=== PATIENT | male | born 1950 | race American Indian/Alaskan Native ===

== ENCOUNTER 2018-05-27 09:50 | Emergency (ER) | payer OTHER ==
[2018-05-27 09:54] VITALS: BP 137/60; PULSE 63; TEMP 97.4; BMI 29.7
[2018-05-27] MEDS ORDERED: NAPROXEN 500 MG TABLET (FP) PO ONE (10:39)
--- NOTE | 2018-05-27 10:47 | PDOC ---
History of Present Illness - General Chief Complaint: Pain Stated Complaint: LEG PAIN/SIDE PAIN Time Seen by Provider: 05/27/18 10:14 History Source: Patient Exam Limitations: No Limitations Past History - Past Medical History Allergies/Adverse Reactions: Allergies Allergy/AdvReac Type Severity Reaction Status Date / Time No Known Allergies Allergy Verified 05/27/18 09:54 Home Medications: Ambulatory Orders NK [No Known Home Medication] 05/27/18 COPD: No - Suicide/Smoking/Psychosocial Hx Smoking History: Never smoked *Physical Exam - Vital Signs Last Vital Signs Temp Pulse Resp BP Pulse Ox 97.4 F L 63 18 137/60 99 05/27/18 09:51 05/27/18 09:51 05/27/18 09:51 05/27/18 09:51 05/27/18 09:51 Moderate Sedation - Procedure Monitoring Vital Signs: Procedure Monitoring Vital Signs Temperature 97.4 F L 05/27/18 09:51 Pulse Rate 63 05/27/18 09:51 Respiratory Rate 18 05/27/18 09:51 Blood Pressure 137/60 05/27/18 09:51 O2 Sat by Pulse Oximetry (%) 99 05/27/18 09:51 *DC/Admit/Observation/Transfer Diagnosis at time of Disposition: Low back strain Qualifiers: Encounter type: initial encounter Qualified Code(s): S39.012A - Strain of muscle, fascia and tendon of lower back, initial encounter - Discharge Dispostion Disposition: HOME Condition at time of disposition: Stable Decision to Admit order: No - Referrals - Patient Instructions Printed Discharge Instructions: DI for Back Strain or Sprain - Post Discharge Activity Forms/Work/School Notes: Back to Work
[2018-05-27] MEDS ORDERED: NAPROXEN 500 MG TABLET (FP) ONE (10:50)
--- NOTE | 2018-05-27 10:50 | PDOC ---
History of Present Illness - General Chief Complaint: Pain Stated Complaint: LEG PAIN/SIDE PAIN Time Seen by Provider: 05/27/18 10:14 History Source: Patient, Spouse Exam Limitations: No Limitations - History of Present Illness Initial Comments: 05/27/18 15:13 Patient came for evaluation of right hip pain. States started with low back progressively worsened shooting through his sciatic nerve down the posterior aspect of his right leg. Denies any knowledge of changes in activity or exercise Past History - Travel Traveled outside of the country in the last 30 days: No Close contact w/someone who was outside of country & ill: No - Past Medical History Allergies/Adverse Reactions: Allergies Allergy/AdvReac Type Severity Reaction Status Date / Time No Known Allergies Allergy Verified 05/27/18 09:54 Home Medications: Ambulatory Orders Cyclobenzaprine HCl 10 mg PO Q8H PRN #14 tablet 05/27/18 Naproxen [Naprosyn -] 500 mg PO BID #30 tablet 05/27/18 COPD: No - Suicide/Smoking/Psychosocial Hx Smoking History: Never smoked Review of Systems - Review of Systems Able to Perform ROS?: Yes Is the patient limited Yoruba proficient: Yes Constitutional: Yes: Symptoms Reported, See HPI, Malaise. No: Fever HEENTM: Yes: See HPI. No: Symptoms Reported Musculoskeletal: Yes: Symptoms Reported, See HPI, Back Pain, Muscle Pain Integumentary: Yes: See HPI. No: Symptoms Reported All Other Systems: Reviewed and Negative *Physical Exam - Vital Signs Last Vital Signs Temp Pulse Resp BP Pulse Ox 97.4 F L 63 18 137/60 99 05/27/18 09:51 05/27/18 09:51 05/27/18 09:51 05/27/18 09:51 05/27/18 09:51 - Physical Exam General Appearance: Yes: Nourished, Appropriately Dressed, Apparent Distress, Mild Distress HEENT: positive: THA Neck: positive: Supple. negative: Tender Respiratory/Chest: positive: Lungs Clear Gastrointestinal/Abdominal: positive: Soft. negative: Tender Musculoskeletal: positive: Normal Inspection. negative: Vertebral Tenderness ( no vertebral tenderness, but has palpable tension and spasm to the paravertebral spinous muscles primarily in the lumbar spine.) Extremity: positive: Normal Inspection. negative: Normal Capillary Refill, Normal Range of Motion (limited range of motion secondary to tenderness along the posterior aspect of right leg in the sciatic distribution.), Tender Integumentary: positive: Dry, Warm, Pale Neurologic: positive: quality control operator II-XII NML intact, Fully Oriented, Alert, Normal Mood/ Affect, Normal Response, Motor Strength 5/5 Moderate Sedation - Procedure Monitoring Vital Signs: Procedure Monitoring Vital Signs Temperature 97.4 F L 05/27/18 09:51 Pulse Rate 63 05/27/18 09:51 Respiratory Rate 18 05/27/18 09:51 Blood Pressure 137/60 05/27/18 09:51 O2 Sat by Pulse Oximetry (%) 99 05/27/18 09:51 Progress Note - Progress Note Progress Note: Low back strain, will treat with NSAIDs and cyclobenzaprine *DC/Admit/Observation/Transfer Diagnosis at time of Disposition: Low back strain Qualifiers: Encounter type: initial encounter Qualified Code(s): S39.012A - Strain of muscle, fascia and tendon of lower back, initial encounter - Discharge Dispostion Disposition: HOME Condition at time of disposition: Stable Decision to Admit order: No - Prescriptions Prescriptions: Cyclobenzaprine HCl 10 mg PO Q8H PRN #14 tablet PRN Reason: spasm Naproxen [Naprosyn -] 500 mg PO BID #30 tablet - Referrals - Patient Instructions Printed Discharge Instructions: DI for Low Back Pain, DI for Back Strain or Sprain Additional Instructions: Rest, no heavy lifting or exercise until pain is resolved Hot soaks to neck and low back as often as possible/hot showers or Jacuzzis No massage or therapy until spasm is gone Continue Naprosyn 500 mg tablet, 1 tablet every 8 hours for the next 3 days then as needed for pain and swelling Cyclobenzaprine 1-10mg every 8 hours as needed for spasm If not significant improvement within 24 hours with medication and rest regime, followup with private physician for change in medications and /or therapy. - Post Discharge Activity Forms/Work/School Notes: Back to Work
== END 2018-05-27 10:57 | disposition home or self-care (01) ==
LOC: JERFT 09:50
DX: S39.012A Strain of muscle, fascia and tendon of lower back, initial encounter (principal); X58.XXXA Exposure to other specified factors, initial encounter; Y93.89 Activity, other specified; Y92.89 Other specified places as the place of occurrence of the external cause; Y99.8 Other external cause status
CPT/HCPCS: 99281-25